=== PATIENT | female | born 1995 | race Caucasian/White ===

== ENCOUNTER 2017-12-28 22:20 | Emergency (ER) | payer BC ==
[2017-12-29] MEDS: KETOROLAC 30 MG INJ IM (00:05)
[2017-12-29] MEDS: DIAZEPAM 2 MG TAB PO (00:07)
== END 2017-12-29 01:47 | disposition home or self-care (01) ==
LOC: FTE 12-29 01:47
DX: M54.5 Low back pain (principal); M25.511 Pain in right shoulder
CPT/HCPCS: 72040; 72100; 73000; 81025; 96372; 99284-25